=== PATIENT | female | born 1980 | race Caucasian/White ===

== ENCOUNTER 2018-09-16 12:55 | Emergency (ER) | payer MEDICAID ==
[~2018-09-16] VITALS: Ht 170.2 cm; Wt 82.3 kg
--- NOTE | 2018-09-16 13:28 | NUR ---
PT STATES SHE IS HERE BECAUSE SHE HAD A SEIZURE THIS MORNING AND ONE 2 WEEKS AGO. "I AM NOT USUALLY HERE AND MY PRIMARY IS IN [place] AND I NEED HELP." STATES SHE DRINKS "A LOT" OF ALCHOHOL EVERY DAY. "I WISH MY BOYFRIEND HAD JUST BOUGHT ME A BEER INSTEAD OF BRINGING ME HERE." PT STATES SHE HAD A WITNESSED SEIZURE 2 WEEKS AGO WHERE HER HANDS "SEIZED UP" AND THEN SHE COULDN'T TALK. STATES TODAY SHE PASSED OUT AND DOESN'T KNOW WHAT HAPPENED IT WAS UNWITTNESSED. STATES HER RIGHT ARM HAS BEEN "FEELING FUNNY" SINCE THE SEIZURE 2 WEEKS AGO. STATES NUMBNESS IS PRESENT. PT STATES SHE FEELS A LOT OF ANXIETY BEING HERE. NADN. PT TACHYCARDIC. PT RESTING ON GURNEY.
--- NOTE | 2018-09-16 13:41 | NUR ---
SEIZURE PRECAUTIONS IN PLACE. MD AT BEDSIDE TO ASSESS PT AND UPDATE PT ON POC.
--- NOTE | 2018-09-16 13:44 | NUR ---
PT REQUESTING WATER. STATED OKAY TO GIVE PT WATER. PT PROVIDED WITH WATER. DENIES ANY OTHER NEED. RESTING ON GURNEY. SEIZURE PRECAUTIONS IN PLACE. VSS. NADN.
[2018-09-16] MEDS ORDERED: LORazepam 1MG TABLET PO ONE (14:00)
[2018-09-16] MEDS ORDERED: LORazepam 1MG TABLET ONE (14:13)
--- NOTE | 2018-09-16 14:15 | NUR ---
PT MEDICATED PER EMAR. AMBULATED TO BATHROOM FOR UA SAMPLE.
--- NOTE | 2018-09-16 14:25 | NUR ---
PT AMBULATORY FROM BATHROOM TO ROOM. RESTING ON GURNEY. CALL LIGHT IN [place]. NADN. VSS. DENIES NEEDS.
[2018-09-16 14:30] LABS: BASOPHILS # (AUTO) 0.09 x10^3/uL (0-0.1); BASOPHILS % (AUTO) 2 % (0-1); EOSINOPHILS # (AUTO) 0.23 x10^3/uL (0-0.4); EOSINOPHILS % (AUTO) 4 % (1-7); LYMPHOCYTES % (AUTO) 45 % (22-44); MD NO; MEAN CORPUSCULAR HEMOGLOBIN 32.5 pg (27.0-34.8); MEAN CORPUSCULAR HGB CONC 33.4 g/dL (32.4-35.8); MEAN CORPUSCULAR VOLUME 97.2 fL (80-100); MEAN PLATELET VOLUME 6.5 fL (7.4-10.4); MONOCYTES # (AUTO) 0.46 x10^3/uL (0.2-0.8); MONOCYTES % (AUTO) 8 % (2-9); NEUTROPHILS # (AUTO) 2.35 x10^3/uL (1.8-6.8); NEUTROPHILS % (AUTO) 42 % (42-75); PLATELET COUNT 448 x10^3/uL (130-400); RED BLOOD COUNT 4.36 x10^6/uL (3.82-5.3); RED CELL DISTRIBUTION WIDTH 13.1 % (9.6-15.2)
[2018-09-16 14:33] LABS: ALBUMIN 3.7 g/dL (3.4-5.0); ANION GAP 8 mmol/L (5-15); CALCIUM 8.3 mg/dL (8.5-10.1); CHLORIDE 108 mmol/L (98-107)
[2018-09-16 14:42] LABS: MICROSCOPIC NOT IND
[2018-09-16 14:43] LABS: CULTURE INDICATED? NO
--- NOTE | 2018-09-16 15:05 | NUR ---
REQUESTING RESOURCES REGARDING WHO SHE CAN FOLLOW UP WITH IN THE COMMUNITY. THIS RN LET PT KNOW SHE WILL BE SUPPLIED WITH RESOURCES. NADN. VIRK. PT GOING TO CT NOW.
--- NOTE | 2018-09-16 15:26 | NUR ---
PT BACK FROM CT. RESTING ON [facility]. NADER. MARIS. DENIES NEEDS. CALL [facility] IN [place].
[2018-09-16 15:52] VITALS: BP 127/92
--- NOTE | 2018-09-16 15:53 | NUR ---
MD AT BEDSIDE TO UPDATE PT ON POC RE: D/C. PT GETTING DRESSED NOW.
== END 2018-09-16 16:10 | disposition home or self-care (01) ==
LOC: ED 15:39
DX: F45.8 Other somatoform disorders (principal)
CPT/HCPCS: 36415; 70450; 80048; 81003; 82040; 83605; 84703; 85025; 99284